=== PATIENT | female | born 1995 | race Caucasian/White ===

== ENCOUNTER 2018-07-06 01:05 | Inpatient (IN) ==
[2018-07-06] MEDS ORDERED: Naloxone Inj 0.4 MG/ML Vial IV.PUSH PRN ×2 (01:19→10:32)
[2018-07-06] MEDS ORDERED: Penicillin G Potassium Inj 5,000,000 UNIT in Sodium Chloride 0.9% Inj 100 ML IV.SIG ONE (01:19)
[2018-07-06] MEDS ORDERED: Sod Chloride 0.9% Inj 1,000 ML IV.CONT PRN (01:19)
[2018-07-06] MEDS ORDERED: Sodium Chlor 0.9% Inj 500 ML IV.SIG PRN (01:19)
[2018-07-06] MEDS ORDERED: Oxytocin 30 Units/500ml Premix 30 UNITS/500 ML BAG IV.SIG ONE (01:19)
[2018-07-06] MEDS ORDERED: fentaNYL Citrate Inj 100 MCG/2 ML Ampul IV.PUSH PRN ×2 (01:19)
--- NOTE | 2018-07-06 01:27 | P.HPOB ---
History of Present Illness Primary Care Physician: UNKNOWN Dr. Angel Chief Complaint: Water broke and contractions History of Present Illness: This 23-year-old white female at [address] Angel for care and presents with gross rupture the membranes and contractions. Patient was seen here 3 hours ago and was 1 cm and sent home at that time arianne. She returns now with gross rupture the membranes with same cervical exam and still arianne. heart rate tracing reactive contractions noted Weeks Gestation:: 39 Para: 1 : 3 Total # of Miscarriage(s): 1 Review of Systems All other systems reviewed negative except as stated in [facility] - Medical History Medical History: Medical History (Last Updated 07/06/18 @ 01:24 by Paul Ortez MD) Asthma - Social History I have reviewed the patient's Social History: Yes - Tobacco History Smoking Status: Never smoker - Alcohol History How Often Do You Have a Drink Containing Alcohol: Never - Substance Use History Substance History: No History of Abuse - Travel History History of Recent Travel: No Recent Travel in the [place] Within the Last 8 Weeks: No Recent Travel Out of the Country Within the Last 8 Weeks: No Medications and Allergies Active Medications: Active Medications Citric Acid/Sodium Citrate (Sodium Citrate/Citric Acid Liq) 30 ml PO GROUP THERAPIST TASHA Stop: 07/10/18 01:29 Fentanyl Citrate (Fentanyl Inj) 50 mcg IV.PUSH Q1H PRN PRN Reason: Pain Scale 3 - 5 Fentanyl Citrate (Fentanyl Inj) 100 mcg IV.PUSH Q1H PRN PRN Reason: PAIN SCALE 6 TO 10 Lactated Ringer's (Lr 1000 Ml Inj) 1,000 mls @ 125 mls/hr IV.CONT .Q8H TASHA Sodium Chloride (Ns Inj) 500 mls @ 1,000 mls/hr IV.SIG UNSCH PRN PRN Reason: SEE LABEL COMMENTS Sodium Chloride (Ns Inj) 1,000 mls @ 100 mls/hr IV.CONT .Q10H PRN PRN Reason: SEE LABEL COMMENTS Penicillin G Potassium 5,000, (000 unit/ Sodium Chloride) 100 mls @ 200 mls/hr IV.SIG ONCE ONE Stop: 07/06/18 01:48 Lidocaine HCl (Xylocaine 1% Inj) 0.1 ml I-DERMAL PRN PRN PRN Reason: For IV start Stop: 07/09/18 01:18 Lidocaine HCl (Xylocaine 1% Inj) 10 ml INFILTRATN PRN PRN PRN Reason: For episiotomy repair Stop: 07/08/18 01:18 Mineral Oil (Muri-Lube Oil) 10 ml TOPICAL PRN PRN PRN Reason: PRN perineal massage Naloxone HCl (Narcan Inj) 0.1 mg IV.PUSH Q2M PRN PRN Reason: for opiate reversal Ondansetron HCl (Zofran Inj) 4 mg IV.PUSH Q6H PRN PRN Reason: NAUSEA OR VOMITING Allergies Allergy/AdvReac Type Severity Reaction Status Date / Time No Known Allergies Allergy Verified 07/05/18 23:13 Home Medications Medication Instructions Recorded Confirmed Type Vitamin 1 tab PO DAILY NEB 03/14/18 07/06/18 History albuterol sulfate 2 puff INHALATION Q4-6H PRN 07/05/18 07/06/18 History fluticasone [Flovent HFA] 2 inh INHALATION Q12H 07/05/18 07/06/18 History Exam Vital signs: Vital Signs 07/06/18 01:14 Temperature 98.7 F Pulse Rate 97 H Respiratory Rate 18 Blood Pressure 127/83 Narrative: GENERAL: Well-nourished, well-developed patient. SKIN: Warm and dry. HEAD: Normocephalic and atraumatic. EYES: No scleral icterus. No injection or drainage. ENT: No nasal drainage noted. Mucous membranes pink. Airway patent. NECK: Supple, trachea midline. No JVD. CARDIOVASCULAR: Regular rate and rhythm without murmurs, gallops, or rubs. RESPIRATORY: Breath sounds equal bilaterally. No accessory muscle use. BREASTS: Bilateral exam showed no masses , no retractions, no nipple discharge. ABDOMEN/GI: Abdomen soft, non-tender, bowel sounds present, no rebound, no guarding Gravid to [39-] weeks size Fundal Height: [37-] GENITOURINARY: External Genitalia: intact and normal in appearance BUS glands: [-] Cervix: [post-] Dilatation: [1-] Effacement: [-80] Station: [-1] Presentation: [vtx-] Membranes: [ ruptured] Uterine Contractions: [q 3 min-] FHT's: Category: [1-] Baseline: [133-] Reactive: [R-] Variability: [mod-] Decels: [0-] EXTREMITIES: No cyanosis or edema. BACK: Nontender without obvious deformity. No CVA tenderness. NEUROLOGICAL: Awake and alert. Motor and sensory grossly within normal limits. Five out of 5 muscle strength in all muscle groups. Normal speech. Results - Labs Group B Strep: Positive Caprini VTE Risk Assessment Caprini VTE Risk Assessment: No/Low Risk (score <= 1) Caprini Risk Assessment Model: Point Value = 1 Point Value = 2 Point Value = 3 Point Value = 5 Age 41-60 Minor surgery BMI > 25 kg/m2 Swollen legs Varicose veins or History of unexplained or recurrent spontaneous Oral contraceptives or hormone replacement Sepsis (< 1 month) Serious lung disease, including pneumonia (< 1 month) Abnormal pulmonary function Acute myocardial infarction Congestive heart failure (< 1 month) History of inflammatory bowel disease Medical patient at bed rest Age 61-74 Arthroscopic surgery Major open surgery (> 45 min) Laparoscopic surgery (> 45 min) Malignancy Confined to bed (> 72 hours) Immobilizing plaster cast Central venous access Age >= 75 History of VTE Family history of VTE Factor V Leiden Prothrombin [id number] Lupus anticoagulant Anticardiolipin antibodies Elevated serum homocysteine Heparin-induced thrombocytopenia Other congenital or acquired thrombophilia Stroke (< 1 month) Elective arthroplasty Hip, pelvis, or leg fracture Acute spinal cord injury (< 1 month) Prophylaxis Regimen: Total Risk Factor Score Risk Level Prophylaxis Regimen 0-1 Low Early ambulation 2 Moderate Order ONE of the following: *Sequential Compression Device (SCD) *Heparin 5000 units SQ BID 3-4 Higher Order ONE of the following medications: *Heparin 5000 units SQ TID *Enoxaparin/Lovenox 40 mg SQ daily (WT < 150 kg, CrCl > 30 mL/min) *Enoxaparin/Lovenox 30 mg SQ daily (WT < 150 kg, CrCl > 10-29 mL/min) *Enoxaparin/Lovenox 30 mg SQ BID (WT < 150 kg, CrCl > 30 mL/min) AND/OR *Sequential Compression Device (SCD) 5 or more Highest Order ONE of the following medications: *Heparin 5000 units SQ TID (Preferred with Epidurals) *Enoxaparin/Lovenox 40 mg SQ daily (WT < 150 kg, CrCl > 30 mL/min) *Enoxaparin/Lovenox 30 mg SQ daily (WT < 150 kg, CrCl > 10-29 mL/min) *Enoxaparin/Lovenox 30 mg SQ BID (WT < 150 kg, CrCl > 30 mL/min) AND *Sequential Compression Device (SCD) Assessment and Plan - Diagnosis (1) 39 weeks gestation of Code(s): Z3A.39 - 39 weeks gestation of Status: Acute (2) Uterine contractions during Code(s): O62.2 - Other uterine inertia Status: Acute (3) Leakage of amniotic fluid Code(s): O42.90 - Premature rupture of membranes, unspecified as to length of time between rupture and onset of labor, unspecified weeks of gestation Status : Acute - Plan Plan for this patient multiparous at 39 weeks with gross rupture membranes and early labor, cervix still 1/80/-1/vertex. Cervical os is still very posterior and the patient is arianne regularly but is not having a lot of discomfort or problem from that, heart rate tracing is reactive and contractions noted. Plan to admit to the hospital, augment labor as needed, begin IV penicillin due to positive GBS status and anticipate vaginal delivery, will plan to notify her private OB doctor
[2018-07-06] MEDS ORDERED: Citric Acid/Sodium Citrate Liq 30 ML UDC PO SCH (01:30)
[2018-07-06 01:35] LABS: Baso # (Auto) 0.1 th/mm3 (0.0-0.2); Baso % (Auto) 0.5 % (0.0-2.0); Eos # (Auto) 0.1 th/mm3 (0.0-0.4); Eos % (Auto) 0.9 % (0.0-4.0); Hematocrit 35.3 % (35.0-46.0); Hemoglobin 12.2 gm/dL (11.6-15.3); Lymph % (Auto) 15.4 % (9.0-44.0); Mean Corpuscular HGB Conc 34.6 % (32.0-36.0); Mean Corpuscular Hemoglobin 33.2 pg (27.0-34.0); Mean Corpuscular Volume 96.1 fL (80.0-100.0); Mean Platelet Volume 8.9 fL (7.0-11.0); Mono # (Auto) 0.8 th/mm3 (0.0-0.9); Mono % (Auto) 6.4 % (0.0-8.0); Neut # (Auto) 9.7 th/mm3 (1.8-7.7); Neut % (Auto) 76.8 % (16.0-70.0); Platelet Count 150 th/mm3 (150-450); Red Blood Count 3.68 mil/mm3 (4.00-5.30); White Blood Count 12.7 th/mm3 (4.0-11.0)
[2018-07-06] MEDS ORDERED: fentaNYL 2MCG-Bupiv 0.125% Epi 150 ML EPIDURAL ONE (01:54)
[2018-07-06] MEDS ORDERED: Lidocaaine 1.5%/Epinephrine 1:200,000 PF Inj 5 ML Amp ONE (02:18)
[2018-07-06] MEDS ORDERED: Lidocaine PF 1% Inj 5 ML Vial ONE (02:18)
[2018-07-06] MEDS ORDERED: fentaNYL 2MCG-Bupiv 0.125% Epi 150 ML EPIDURAL PRN (02:42)
[2018-07-06] MEDS ORDERED: fentaNYL Citrate Inj 100 MCG/2 ML Ampul EPIDURAL ONE (02:42)
[2018-07-06 04:14] LABS: Bilirubin,Urine Negative (Negative); Clarity,Urine Clear (Clear); Color,Urine Colorless (Yellw/Straw); Glucose,Urine (UA) Negative (Negative); Hyaline Casts,Urine 1 /lpf (0-3); Leukocyte Esterase,Urine Negative (Negative); Nitrite,Urine Negative (Negative); Specific Gravity,Urine 1.008 (1.002-1.035)
[2018-07-06 04:19] LABS: Amphetamine Urine With Conf Neg (Neg); Benzodiazepine Urine With Conf Neg (Neg)
[2018-07-06] MEDS: Penicillin G Potassium Inj 2,500,000 UNIT in Sodium Chlor 0.9% Inj 100 ML IV.SIG SCH ×2 (05:52→11:05)
[2018-07-06] MEDS ORDERED: Oxytocin 30 Units/500ml Premix 30 UNITS/500 ML BAG IV.SIG PRN (07:02)
--- NOTE | 2018-07-06 08:20 | P.OBLABOR ---
Subjective Interval history: confortable with epidural internalized and on peanut ball nausea Objective Vital Signs: Vital Signs - 8 hr 07/06/18 01:14 07/06/18 02:15 07/06/18 02:28 Temperature 98.7 F Pulse Rate 97 H 99 H 86 Respiratory Rate 18 18 Blood Pressure 127/83 123/74 114/77 07/06/18 02:32 07/06/18 02:33 07/06/18 02:59 Temperature Pulse Rate 94 H 77 80 Respiratory Rate 18 18 Blood Pressure 100/78 104/60 07/06/18 03:00 07/06/18 03:25 07/06/18 03:30 Temperature Pulse Rate 75 76 72 Respiratory Rate 18 18 Blood Pressure 105/65 104/58 L 07/06/18 03:31 07/06/18 03:45 07/06/18 03:50 Temperature Pulse Rate 77 71 72 Respiratory Rate 18 Blood Pressure 102/62 93/51 L 07/06/18 03:55 07/06/18 04:00 07/06/18 04:05 Temperature Pulse Rate 74 83 69 Respiratory Rate Blood Pressure 96/53 L 07/06/18 04:10 07/06/18 04:15 07/06/18 04:20 Temperature Pulse Rate 71 75 75 Respiratory Rate Blood Pressure 98/57 L 07/06/18 04:25 07/06/18 04:30 07/06/18 04:40 Temperature Pulse Rate 68 69 78 Respiratory Rate Blood Pressure 102/58 L 07/06/18 04:45 07/06/18 04:50 07/06/18 04:55 Temperature Pulse Rate 79 79 78 Respiratory Rate Blood Pressure 102/56 L 07/06/18 05:00 07/06/18 05:01 07/06/18 05:05 Temperature Pulse Rate 76 89 68 Respiratory Rate Blood Pressure 110/59 L 07/06/18 05:10 07/06/18 05:15 07/06/18 05:20 Temperature Pulse Rate 72 80 74 Respiratory Rate Blood Pressure 104/62 07/06/18 05:25 07/06/18 05:29 07/06/18 05:30 Temperature 98.5 F Pulse Rate 86 90 Respiratory Rate 18 Blood Pressure 121/79 07/06/18 05:35 07/06/18 05:40 07/06/18 05:45 Temperature Pulse Rate 76 76 83 Respiratory Rate Blood Pressure 120/75 07/06/18 05:50 07/06/18 05:55 07/06/18 06:10 Temperature Pulse Rate 78 80 86 Respiratory Rate Blood Pressure 94/60 L 07/06/18 06:15 07/06/18 06:20 07/06/18 06:25 Temperature Pulse Rate 85 85 106 H Respiratory Rate Blood Pressure 103/56 L 07/06/18 06:30 07/06/18 06:35 07/06/18 06:40 Temperature Pulse Rate 87 85 82 Respiratory Rate Blood Pressure 94/54 L 07/06/18 06:45 07/06/18 06:50 07/06/18 06:55 Temperature Pulse Rate 83 91 H 90 Respiratory Rate Blood Pressure 103/58 L 07/06/18 07:00 07/06/18 07:25 07/06/18 07:30 Temperature 98.2 F Pulse Rate 85 85 Respiratory Rate 16 Blood Pressure 115/80 110/75 07/06/18 07:40 07/06/18 08:00 Temperature Pulse Rate 77 72 Respiratory Rate Blood Pressure 114/76 101/81 Objective: Pelvic Exam: / asynclitic EFW 7 strip has great BTBV but variables with late component adequate labor on pit Weeks Gestation: 37 Patient Started Active Labor: Yes Medical Induction of Labor: No Artificial Rupture of Membrane: No Assessment and Plan - Plan Plan for this patient multiparous at 39 weeks with gross rupture membranes and early labor, cervix still 1/80/-1/vertex. Cervical os is still very posterior and the patient is arianne regularly but is not having a lot of discomfort or problem from that, heart rate tracing is reactive and contractions noted. Plan to admit to the hospital, augment labor as needed, begin IV penicillin due to positive GBS status and anticipate vaginal delivery, will plan to notify her private OB doctor 07/06/18 continue pitocin Nurse aware this is overriding protocol due to excellent BTBV and need to maintain adequate labor and deliver close observation
[2018-07-06 10:11] LABS: Cord Arterial Blood HCO3 24.1
[2018-07-06] MEDS ORDERED: Witch Hazel 50%/Glyderin 12.5% 40 Pad Jar RECTAL PRN (10:32)
[2018-07-06] MEDS ORDERED: Zolpidem Tartrate 5 MG Tablet PO PRN (10:32)
[2018-07-06] MEDS ORDERED: Bisacodyl 10 MG Supp RECTAL PRN (10:32)
[2018-07-06] MEDS ORDERED: Oxytocin 30 Units/500ml Premix 30 UNITS/500 ML BAG IV.CONT PRN (10:32)
[2018-07-06] MEDS ORDERED: Acetaminophen 325 MG Tablet PO PRN (10:32)
[2018-07-06] MEDS ORDERED: Benzocaine 20% Top Spray 60 ML Can TOPICAL PRN (10:32)
--- NOTE | 2018-07-06 10:32 | P.OBDELI ---
Weeks Gestation: 37 Patient Started Active Labor: Yes Medical Induction of Labor: No Artificial Rupture of Membrane: No Anesthesia: Epidural Episiotomy: none Vaginal Delivery: Normal Presentation: Occiput posterior Nuchal Cord: x1 Delayed Cord Clamping (45 sec): Yes Placenta: Spontaneous delivery, Intact, 3 vessel cord, Cord pH Laceration: None Estimated blood loss (mL): 200 : Male Male A Delivery Date: 07/06/18 Weight: 3800 kg score (1 min): 8 score (5 min): 9
[2018-07-06] MEDS ORDERED: Diphtheria/Tetanus/Pertussis Vaccine Inj 0.5 ML Syringe IM ONE (16:00)
[2018-07-06] MEDS ORDERED: Measles/Mumps/Rubella Vaccine Inj 0.5 ML Vial SQ ONE (16:00)
[2018-07-06] MEDS: Senna/Docusate Sodium 8.6/50 MG Tablet PO SCH (21:54)
--- NOTE | 2018-07-07 08:36 | P.PNOB ---
Subjective Post day: 1 Interval history: PPD#1; stable, GBS +, doing well. Objective Vital Signs/I&O: Vital Signs 07/06/18 08:35 07/06/18 08:55 07/06/18 09:15 Temperature 98.0 F Pulse Rate 77 83 102 H Respiratory Rate 16 Blood Pressure 99/67 L 107/65 113/76 07/06/18 09:25 07/06/18 10:00 07/06/18 10:15 Temperature 98.5 F Pulse Rate 77 74 85 Respiratory Rate 20 18 Blood Pressure 120/61 117/79 07/06/18 10:45 07/06/18 11:00 07/06/18 11:15 Temperature Pulse Rate 83 73 Respiratory Rate 18 Blood Pressure 99/68 L 114/67 101/70 07/06/18 11:26 07/06/18 11:30 07/06/18 13:30 Temperature 98.0 F Pulse Rate 87 72 Respiratory Rate 18 18 Blood Pressure 115/76 98/64 L 07/06/18 20:20 07/07/18 08:03 Temperature 98.3 F 98.0 F Pulse Rate 72 70 Respiratory Rate 18 18 Blood Pressure 89/57 L 95/55 L Intake & Output 07/06/18 07/07/18 07/07/18 18:59 06:59 18:59 Intake Total 1000 / 1000 Balance 1000 / 1000 Intake: IV 1000 / 1000 LR 1000 mL Inj 1,000 ML @ 125 1000 / 1000 mls/hr IV.CONT .Q8H [facility] Rx#: [id number] Result Diagrams: 07/06/18 01:20 Objective Remarks: GENERAL: Well-nourished, well-developed patient. CARDIOVASCULAR: Regular rate and rhythm without murmurs, gallops, or rubs. RESPIRATORY: Breath sounds equal bilaterally. No accessory muscle use. ABDOMEN/GI: Abdomen soft, non-tender. Fundus: Firm, non-tender at umbilicus. GENITOURINARY: Light to moderate bleeding. EXTREMITIES: No cyanosis or edema, non-tender, without signs of DVT. Medications and IVs: Active Medications Acetaminophen (Tylenol) 650 mg PO Q4H PRN PRN Reason: PAIN SCALE 1 TO 2 Al Hydroxide/Mg Hydroxide (Milk Of Magnesia Liq) 30 ml PO Q12H PRN PRN Reason: Mild Constipation Benzocaine (Americaine 20% [place]) 1 spray TOPICAL Q4H PRN PRN Reason: For Perineum Discomfort Last Admin: 07/06/18 20:31 Dose: 1 spray Bisacodyl (Dulcolax Supp) 10 mg RECTAL DAILY PRN PRN Reason: SEVERE CONSITIPATION Citric Acid/Sodium Citrate (Sodium Citrate/Citric Acid Liq) 30 ml PO CARPET WEAVER [facility] Stop: 07/10/18 01:29 Fentanyl Citrate (Fentanyl Inj) 50 mcg IV.PUSH Q1H PRN PRN Reason: Pain Scale 3 - 5 Fentanyl Citrate (Fentanyl Inj) 100 mcg IV.PUSH Q1H PRN PRN Reason: PAIN SCALE 6 TO 10 Sodium Chloride (Ns Inj) 500 mls @ 1,000 mls/hr IV.SIG UNSCH PRN PRN Reason: SEE LABEL COMMENTS Sodium Chloride (Ns Inj) 1,000 mls @ 100 mls/hr IV.CONT .Q10H PRN PRN Reason: SEE LABEL COMMENTS Lactated Ringer's (Lr 1000 Ml Inj) 1,000 mls @ 3,000 mls/hr IV.SIG UNSCH PRN PRN Reason: compromise or epidural Last Admin: 07/06/18 01:54 Dose: 3,000 mls/hr Fentanyl/Bupivacaine/Sodium Chlor (Fentanyl 2 Mcg-Bupiv 0.125% Epi) 150 mls @ 12 mls/hr EPIDURAL PRN PRN PRN Reason: for Labor Pain Oxytocin (Pitocin 30 Units/Ns 500 Ml Premix) 30 units in 500 mls @ 100 mls/hr IV.CONT UNSCH PRN PRN Reason: Heavy bleeding Ibuprofen (Motrin) 800 mg PO Q8H PRN PRN Reason: For Cramping Last Admin: 07/07/18 04:31 Dose: 800 mg Lactulose (Lactulose Liq) 30 ml PO DAILY PRN PRN Reason: SEVERE CONSITIPATION Lidocaine HCl (Xylocaine 1% Inj) 0.1 ml I-DERMAL PRN PRN PRN Reason: For IV start Stop: 07/09/18 01:18 Lidocaine HCl (Xylocaine 1% Inj) 10 ml INFILTRATN PRN PRN PRN Reason: For episiotomy repair Stop: 07/08/18 01:18 Mineral Oil (Muri-Lube Oil) 10 ml TOPICAL PRN PRN PRN Reason: PRN perineal massage Naloxone HCl (Narcan Inj) 0.1 mg IV.PUSH Q2M PRN PRN Reason: for opiate reversal Naloxone HCl (Narcan Inj) 0.1 mg IV.PUSH Q2M PRN PRN Reason: for opiate reversal Ondansetron HCl (Zofran Inj) 4 mg IV.PUSH Q6H PRN PRN Reason: NAUSEA OR VOMITING Ondansetron HCl (Zofran Odt) 4 mg PO Q6H PRN PRN Reason: NAUSEA OR VOMITING Senna/Docusate Sodium (Alisson-Colace) 1 tab PO BID TASHA Last Admin: 07/06/18 21:54 Dose: Not Given Sennosides (Senokot) 17.2 mg PO Q12H PRN PRN Reason: Moderate Constipation Sodium Chloride (Ns Flush) 2 ml IV.FLUSH BID TASHA Sodium Chloride (Ns Flush) 2 ml IV.FLUSH PRN PRN PRN Reason: FLUSH AFTER USING IV ACCESS Witch Gregoria/Glycerin (Tucks Pads) 1 applicatio RECTAL QID PRN PRN Reason: HEMORRHOIDS Last Admin: 07/06/18 20:31 Dose: 1 applicatio Zolpidem Tartrate (Ambien) 5 mg PO HS PRN PRN Reason: SLEEP Assessment and Plan - Plan Plan for this patient multiparous at 39 weeks with gross rupture membranes and early labor, cervix still 1/80/-1/vertex. Cervical os is still very posterior and the patient is arianne regularly but is not having a lot of discomfort or problem from that, heart rate tracing is reactive and contractions noted. Plan to admit to the hospital, augment labor as needed, begin IV penicillin due to positive GBS status and anticipate vaginal delivery, will plan to notify her private OB doctor 07/06/18 continue pitocin Nurse aware this is overriding protocol due to excellent BTBV and need to maintain adequate labor and deliver close observation 07/07/18 - PPD#1, Doing well, plan discharge PPD2 Discharge Planning: PPD#2
[2018-07-07] MEDS: Senna/Docusate Sodium 8.6/50 MG Tablet PO SCH (10:05)
[2018-07-08 09:05] VITALS: BP 108/64
[2018-07-08 09:06] VITALS: PULSE 80; RESP 18
[2018-07-08 09:07] VITALS: TEMP 98.2
[2018-07-08] MEDS: Senna/Docusate Sodium 8.6/50 MG Tablet PO SCH (09:42)
== END 2018-07-08 13:00 | disposition home or self-care (01) ==
LOC: HOBED 01:05 → H1EA 01:10 → H2E 01:25 → H1EA 12:17
PROVIDERS: ADMIT Obstetrics & Gynecology; ATTEND Obstetrics & Gynecology